=== PATIENT | male | born 2005 | race Two or more races ===

== ENCOUNTER 2024-08-24 02:44 | Emergency (ER) | payer MEDICAID, SELFPAY ==
[2024-08-24 02:48] VITALS: BP 121/74; PULSE 85; RESP 17; TEMP 36.4; O2SAT 98; BMI 23.8
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
== END 2024-08-24 03:41 ==
LOC: SERX 03:18
PROVIDERS: Emergency Provider Emergency Medicine
DX: Z02.89 Encounter for other administrative examinations (principal)
CPT/HCPCS: 99281